=== PATIENT | male | born 1940 | race Caucasian/White ===

== ENCOUNTER 2021-07-26 07:48 | Outpatient (CLI) | payer MEDICARE | END 2021-07-26 23:59 | disposition home or self-care (01) | LOC: LAB 07:48 | PROVIDERS: ATTEND Orthopaedic Surgery | DX: Z01.812 Encounter for preprocedural laboratory examination (principal); Z20.822 Contact with and (suspected) exposure to COVID-19 ==

== ENCOUNTER 2021-07-27 06:31 | Day surgery (SDC) | payer MEDICARE ==
[2021-07-27] MEDS ORDERED: LIDOCAINE-MPF 2% 5 ML VIAL IJ ONE (06:32)
[2021-07-27] MEDS ORDERED: PROPOFOL 200 MG/20 ML BOTTLE IV ONE (06:32)
[2021-07-27] MEDS ORDERED: CEFAZOLIN 1 G VIAL IM ONE (06:32)
[2021-07-27] MEDS ORDERED: ONDANSETRON 4 MG/2 ML VIAL IV ONE (06:32)
[2021-07-27] MEDS ORDERED: NEOSTIGMINE METHYLSULFATE 10 MG/10 ML VIAL IM ONE (06:32)
[2021-07-27] MEDS ORDERED: DEXAMETHASONE SOD PHOSPHATE 4 MG INJ IV ONE (06:32)
[2021-07-27] MEDS ORDERED: GLYCOPYRROLATE 0.2 MG/ML VIAL IJ ONE (06:32)
[2021-07-27] MEDS ORDERED: MORPHINE SULFATE PF 10 MG/10 ML AMPUL IV ONE (06:48)
[2021-07-27] MEDS ORDERED: BUPIVACAINE/EPI PF 0.25% 10 ML VIAL IJ ONE (06:48)
[2021-07-27] MEDS ORDERED: FENTANYL CITRATE 250 MCG/5 ML AMPUL ONE (07:45)
[2021-07-27] MEDS ORDERED: ROCURONIUM BROMIDE 50 MG/5 ML VIAL ONE (07:46)
[2021-07-27] MEDS ORDERED: SCOPOLAMINE PATCH 1 MG/72 HRS PATCH TD ONE (08:00)
[2021-07-27] MEDS ORDERED: FENTANYL CITRATE 100 MCG/2 ML AMPUL ONE (09:26)
== END 2021-07-27 11:40 | disposition home or self-care (01) ==
LOC: DS 06:31
PROVIDERS: ATTEND Orthopaedic Surgery
DX: S83.231A Complex tear of medial meniscus, current injury, right knee, initial encounter (principal); M94.261 Chondromalacia, right knee; I10 Essential (primary) hypertension; M19.90 Unspecified osteoarthritis, unspecified site; Z79.899 Other long term (current) drug therapy; Z98.890 Other specified postprocedural states; X58.XXXA Exposure to other specified factors, initial encounter; Y93.89 Activity, other specified; Y92.89 Other specified places as the place of occurrence of the external cause; Y99.8 Other external cause status
CPT/HCPCS: 20610; 29881; J0690; J1100; J2274; J2405; J3010 ×2; J3490 ×4; A4663